=== PATIENT | female | born 1960 | race Caucasian/White ===

== ENCOUNTER → 2018-11-12 | Outpatient (CLI) | payer MEDICAID ==
[2018-11-12 08:47] LABS: ABSOLUTE BASOPHILS # (AUTO) 0.1 10^3/uL (0.0-0.2); ABSOLUTE EOSINOPHILS # (AUTO) 0.4 10^3/uL (0.0-0.6); ABSOLUTE LYMPHOCYTES (AUTO) 2.9 10^3/uL (0.5-4.7); ABSOLUTE MONOCYTES (AUTO) 0.6 10^3/uL (0.1-1.4); ABSOLUTE NEUT (AUTO) 4.6 10^3/uL (1.7-8.2); BASOPHILS % (AUTO) 0.8 % (0-2); EOSINOPHILS % (AUTO) 4.2 % (0-6); HEMATOCRIT 37.3 % (36.0-47.0); HEMOGLOBIN 13.2 g/dL (12.0-15.5); LYMPHOCYTES % (AUTO) 34.1 % (13-45); MEAN CORPUSCULAR HEMOGLOBIN 32.7 pg (27.0-33.4); MEAN CORPUSCULAR HGB CONC 35.3 g/dL (32.0-36.0); MEAN CORPUSCULAR VOLUME 93 fl (80-97); MONOCYTES % (AUTO) 6.8 % (3-13); PLATELET COUNT 263 10^3/uL (150-450); RED BLOOD COUNT 4.02 10^6/uL (3.72-5.28); RED CELL DISTRIBUTION WIDTH 12.1 % (11.5-14.0); SEGMENTED NEUTROPHILS % (AUTO) 54.1 % (42-78); TOTAL CELLS COUNTED % (AUTO) 100 %; WHITE BLOOD COUNT 8.4 10^3/uL (4.0-10.5)
[2018-11-12 09:28] LABS: ERYTHROCYTE SEDIMENTATION RATE 43 mm/hr (0-30)
[2018-11-12 09:34] LABS: ALANINE AMINOTRANSFERASE 63 U/L (9-52); ALBUMIN 4.3 g/dL (3.5-5.0); ALKALINE PHOSPHATASE 80 U/L (38-126); ANION GAP 7 (5-19); ASPARTATE AMINO TRANSFERASE 40 U/L (14-36); BILIRUBIN,DIRECT 0.3 mg/dL (0.0-0.4); BILIRUBIN,TOTAL 0.4 mg/dL (0.2-1.3); BLOOD UREA NITROGEN 12 mg/dL (7-20); CALCIUM 9.5 mg/dL (8.4-10.2); CARBON DIOXIDE 26 mmol/L (22-30); CHLORIDE 107 mmol/L (98-107); CHOLESTEROL 232.97 mg/dL (0-200); GLUCOSE 101 mg/dL (75-110); POTASSIUM 3.9 mmol/L (3.6-5.0); SODIUM 140.1 mmol/L (137-145); TOTAL PROTEIN 7.4 g/dL (6.3-8.2); TRIGLYCERIDES 362 mg/dL (<150)
[2018-11-12 09:47] LABS: DIRECT LDL 153 mg/dL (<100)
--- NOTE | 2018-11-12 09:47 | WOMENS IMAGING REPORT ---
EXAM DESCRIPTION: 3D SCREENING MAMMO BILAT COMPLETED DATE/TIME: 11/12/2018 8:17 am REASON FOR STUDY: Z12.31 ROUTINE 3D BILATERAL SCREENING Z12.31 ENCNTR SCREEN MAMMOGRAM FOR MALIGNAN T NEOPLASM OF DAVIS COMPARISON: 2008 TECHNIQUE: Standard craniocaudal and mediolateral oblique views of each breast recorded using digita l acquisition and breast tomosynthesis. LIMITATIONS: None. FINDINGS: No masses, calcifications or architectural distortion. No areas of suspicion. Read with the assistance of CAD. .[facility] - R2 Cenova Version 1.3 .[facility] - R2 Cenova Version 2.1 .[facility] - R2 Cenova Version 2.4 .[facility] - R2 Cenova Version 2.4 .[facility] - R2 [employer] Version 9.2 IMPRESSION: NORMAL MAMMOGRAM. BIRADS 1. BREAST DENSITY: a. The breasts are almost entirely fatty. BIRAD: 1 NEGATIVE RECOMMENDATION: ROUTINE SCREENING COMMENT: The patient has been notified of the results by letter per MQSA requirements. Additional no tification policies are in place for contacting patient with suspicious or incomplete findings. Quality ID #225: The [employer] recommends an annual screening mammogram for women aged 40 years or over. This facility utilizes a reminder system to ensure that all patients receive reminder letters, and/or direct phone calls for appointments. This includes reminders for routine scr eening mammograms, diagnostic mammograms, or other Breast Imaging Interventions when appropriate. Th is patient will be placed in the appropriate reminder system. The [employer] (ACR) has developed recommendations for screening MRI of the breast s in certain patient populations, to be used in conjunction with mammography. Breast MRI surveillanc e may be appropriate for women with more than 20% lifetime risk of developing breast cancer as deter mined by genetic testing, significant family history of the disease, or history of mantle radiation f or Hodgkins Disease. ACR Practice Guidelines 2008. DBT Technology DBT is a type of tomographic mammography. With conventional mammography, overlapping breast tissue ma y make lesions difficult to detect, even with good compression. DBT uses an x-ray tube that rotates a round the breast, taking images at different angles. These images are then combined to create thin sl ices of the breast that the radiologist can view as a 3D reconstruction. The [facility] unit can perform full-field digital mammograms (2D imaging); or DBT (3D imaging); or both, in a combination mode that quickly performs both the mammogram and the tomosynthesis scan while the breast is still compressed. PQRS 6045F: Fluoroscopic imaging is not utilized for breast tomosynthesis. TECHNICAL DOCUMENTATION: FINDING NUMBER: (1) ASSESSMENT: (1) JOB ID: [id number] [employer]- All Rights Reserved Reading location - IP/workstation name: [email or web address] CENTERReshma
[2018-11-12 09:49] LABS: C-REACTIVE PROTEIN < 5.0 mg/L (<10.0); VLDL CHOLESTEROL 72.4 mg/dL (10-31)
[2018-11-14 07:22] LABS: CYCLIC CITRUL PEPTIDE IGG/A AB 8 units (0-19)
== END ==
LOC: WI 07:45
PROVIDERS: ATTEND Internal Medicine
DX: Z12.31 Encounter for screening mammogram for malignant neoplasm of breast (principal); D64.9 Anemia, unspecified; R10.9 Unspecified abdominal pain; E78.5 Hyperlipidemia, unspecified; E03.9 Hypothyroidism, unspecified; M32.9 Systemic lupus erythematosus, unspecified; M12.9 Arthropathy, unspecified; E55.9 Vitamin D deficiency, unspecified
CPT/HCPCS: 36415; 77063; 77067; 80053; 80061; 82306; 84443; 85025; 85652; 86038; 86140; 86200; 86430

== ENCOUNTER → 2018-11-12 | Outpatient (CLI) | payer MEDICAID ==
--- NOTE | 2018-11-12 11:26 | RADIOLOGY REPORT (SQ) ---
EXAM DESCRIPTION: KNEE RIGHT 4 VIEWS COMPLETED DATE/TIME: 11/12/2018 10:55 am REASON FOR STUDY: ARTHROPATHIC PSORIASIS, UNSPECIFIED L40.50 ARTHROPATHIC PSORIASIS, UNSPECIFIED COMPARISON: None. NUMBER OF VIEWS: Four views. TECHNIQUE: AP, lateral, and both oblique radiographic images acquired of the right knee. LIMITATIONS: None. FINDINGS: MINERALIZATION: Normal. BONES: No acute fracture or dislocation. Small enthesiophyte at the quadriceps tendon insertion. JOINT: Mild narrowing of the medial, lateral and patellofemoral compartments. Small marginal osteop hyte medial compartment. SOFT TISSUES: No soft tissue swelling. No radio-opaque foreign body. OTHER: No other significant finding. IMPRESSION: 1. Mild tricompartmental joint disease. . 2. No acute osseous findings. TECHNICAL DOCUMENTATION: JOB ID: [id number] [employer]- All Rights Reserved Reading location - IP/workstation name: [email or web address] MANUEL
--- NOTE | 2018-11-12 11:28 | RADIOLOGY REPORT (SQ) ---
EXAM DESCRIPTION: ANKLE BILATERAL 3 VIEWS MIN COMPLETED DATE/TIME: 11/12/2018 10:55 am REASON FOR STUDY: ARTHROPATHIC PSORIASIS, UNSPECIFIED L40.50 ARTHROPATHIC PSORIASIS, UNSPECIFIED COMPARISON: None. NUMBER OF VIEWS: Three views. TECHNIQUE: AP, lateral, and oblique radiographic images acquired of the right and left ankle. LIMITATIONS: None. FINDINGS: MINERALIZATION: Normal. BONES: No acute fracture or dislocation. Prominent calcaneal spurs bilaterally, slightly more pronou nced on the right. JOINTS: No significant joint space narrowing. No erosions. No chondrocalcinosis. SOFT TISSUES: No soft tissue swelling. No foreign body. OTHER: No other significant finding. IMPRESSION: 1. No acute osseous findings. 2. Prominent calcaneal spurs bilaterally. TECHNICAL DOCUMENTATION: JOB ID: [id number] [employer]- All Rights Reserved Reading location - IP/workstation name: [email or web address] MANUEL
--- NOTE | 2018-11-12 11:32 | RADIOLOGY REPORT (SQ) ---
EXAM DESCRIPTION: ELBOW BILATERAL 2 VIEWS MIN COMPLETED DATE/TIME: 11/12/2018 10:55 am REASON FOR STUDY: ARTHROPATHIC PSORIASIS, UNSPECIFIED L40.50 ARTHROPATHIC PSORIASIS, UNSPECIFIED COMPARISON: None. NUMBER OF VIEWS: Four views. TECHNIQUE: AP, lateral, and both oblique radiographic images acquired of the right and left elbow. LIMITATIONS: None. FINDINGS: MINERALIZATION: Normal. BONES: No acute fracture or dislocation. No worrisome bone lesions. JOINT: No evidence for significant joint space narrowing. No erosions. No chondrocalcinosis. No ef fusion. SOFT TISSUES: No soft tissue swelling. No foreign body. OTHER: No other significant finding. IMPRESSION: 1. NEGATIVE STUDY OF THE RIGHT AND LEFT ELBOW. TECHNICAL DOCUMENTATION: JOB ID: [id number] [employer]- All Rights Reserved Reading location - IP/workstation name: [email or web address] MANUEL
--- NOTE | 2018-11-12 11:35 | RADIOLOGY REPORT (SQ) ---
EXAM DESCRIPTION: T SPINE AP/LAT COMPLETED DATE/TIME: 11/12/2018 10:55 am REASON FOR STUDY: ARTHROPATHIC PSORIASIS, UNSPECIFIED L40.50 ARTHROPATHIC PSORIASIS, UNSPECIFIED COMPARISON: 07/26/2009 NUMBER OF VIEWS: Two views. TECHNIQUE: AP and lateral radiographic images acquired of the thoracic spine. LIMITATIONS: None. FINDINGS: MINERALIZATION: Normal. ALIGNMENT: Very mild levoconvex scoliosis of the thoracic spine, stable finding. VERTEBRAE: No fracture or bone lesion. Maintained height, normal segmentation. DISCS: Mild disc space narrowing lower thoracic spine. No significant loss of height. No large oste ophytes. HARDWARE: None in the spine. MEDIASTINUM AND SOFT TISSUES: Normal heart size and aortic contour. No soft tissue abnormality. VISUALIZED LUNG ALBARRAN: Clear. OTHER: No other significant finding. IMPRESSION: 1. Stable very mild levoconvex scoliosis of the thoracic spine. Degenerative mild barajas ges lower thoracic spine. 2. No acute osseous findings. TECHNICAL DOCUMENTATION: JOB ID: [id number] [employer]- All Rights Reserved Reading location - IP/workstation name: [email or web address] MANUEL
--- NOTE | 2018-11-12 12:53 | RADIOLOGY REPORT (SQ) ---
EXAM DESCRIPTION: CERV SP 4 OR 5 VIEWS COMPLETED DATE/TIME: 11/12/2018 12:16 pm REASON FOR STUDY: ARTHROPATHIC PSORIASIS, UNSPECIFIED L40.50 ARTHROPATHIC PSORIASIS, UNSPECIFIED COMPARISON: Cervical spine plain films 07/26/2009 NUMBER OF VIEWS: Five views. TECHNIQUE: AP, lateral, obliques and odontoid radiographic images acquired of the cervical spine. LIMITATIONS: None. FINDINGS: MINERALIZATION: Normal. ALIGNMENT: Anatomic. VERTEBRAE: Vertebral bodies of normal height. DISCS: Mild disc space loss of height at C5-6 FORAMINA: High-grade left C2-3 and C3-4 foraminal narrowing. Moderate left C4-5 and C6-7 foraminal n arrowing. LATERAL AND POSTERIOR ELEMENTS: Facets, lateral masses and spinous processes without significant find ings. HARDWARE: None in the spine. SOFT TISSUES: No masses or calcifications. Lung apices clear. OTHER: No other significant finding. IMPRESSION: Multilevel left-sided foraminal narrowing TECHNICAL DOCUMENTATION: JOB ID: [id number] [employer]- All Rights Reserved Reading location - IP/workstation name: [email or web address]
--- NOTE | 2018-11-12 13:17 | RADIOLOGY REPORT (SQ) ---
EXAM DESCRIPTION: L SPINE WHOLE COMPLETED DATE/TIME: 11/12/2018 10:54 am REASON FOR STUDY: ARTHROPATHIC PSORIASIS, UNSPECIFIED L40.50 ARTHROPATHIC PSORIASIS, UNSPECIFIED COMPARISON: None. NUMBER OF VIEWS: Five views including obliques. TECHNIQUE: AP, lateral, oblique, and sacral radiographic images acquired of the lumbar spine. LIMITATIONS: None. FINDINGS: MINERALIZATION: Normal. SEGMENTATION: Normal. No transitional anatomy. ALIGNMENT: Exaggeration of the normal lordotic curvature. VERTEBRAE: Maintained height. No fracture or worrisome bone lesion. DISCS: Preserved height. Small anterior osteophytes off of the lumbar vertebra. Mild degenerative c hanges at the thoracolumbar junction and lower lumbar spine. POSTERIOR ELEMENTS: Mild facet arthrosis lower lumbar spine. Pedicles are intact. No pars defect or posterior arch defects. HARDWARE: None in the spine. PARASPINAL SOFT TISSUES: Normal. PELVIS: Intact as visualized. No fractures or worrisome bone lesions. SI joints intact. OTHER: Mild atherosclerotic changes involving the abdominal aorta. Prior cholecystectomy. IMPRESSION: 1. Degenerative mild changes involving the lumbar spine as above. 2. No acute osseous findings. TECHNICAL DOCUMENTATION: JOB ID: [id number] [employer]- All Rights Reserved Reading location - IP/workstation name: [email or web address] MANUEL
--- NOTE | 2018-11-12 13:21 | RADIOLOGY REPORT (SQ) ---
EXAM DESCRIPTION: HIP BILATERAL COMPLETED DATE/TIME: 11/12/2018 10:54 am REASON FOR STUDY: ARTHROPATHIC PSORIASIS, UNSPECIFIED L40.50 ARTHROPATHIC PSORIASIS, UNSPECIFIED COMPARISON: None. NUMBER OF VIEWS: Two views TECHNIQUE: AP pelvis and additional frog-leg view of both hips. LIMITATIONS: None. FINDINGS: MINERALIZATION: Normal. HIPS: No acute fracture or dislocation. No worrisome bone lesions. PELVIS AND SACRUM: No acute fracture or dislocation. No worrisome bone lesions. PUBIS AND ISCHIUM: No acute fracture. LOWER LUMBAR SPINE: No significant findings as visualized. SOFT TISSUES: No findings. OTHER: No other significant finding. IMPRESSION: 1. NEGATIVE STUDY OF THE PELVIS AND HIPS. TECHNICAL DOCUMENTATION: JOB ID: [id number] [employer]- All Rights Reserved Reading location - IP/workstation name: [email or web address] MANUEL
--- NOTE | 2018-11-12 13:21 | RADIOLOGY REPORT (SQ) ---
EXAM DESCRIPTION: KNEE LEFT 4 VIEW COMPLETED DATE/TIME: 11/12/2018 10:55 am REASON FOR STUDY: ARTHROPATHIC PSORIASIS, UNSPECIFIED L40.50 ARTHROPATHIC PSORIASIS, UNSPECIFIED COMPARISON: None. NUMBER OF VIEWS: Four views. TECHNIQUE: AP, lateral, and both oblique radiographic images acquired of the left knee. LIMITATIONS: None. FINDINGS: MINERALIZATION: Normal. BONES: No acute fracture or dislocation. No worrisome bone lesions. JOINT: No suprapatellar knee joint effusion. Mild medial compartment joint space narrowing without b ankit spurring SOFT TISSUES: No soft tissue swelling. No radio-opaque foreign body. OTHER: No other significant finding. IMPRESSION: Mild medial compartment left knee joint space narrowing without bulky bony spurring TECHNICAL DOCUMENTATION: JOB ID: [id number] [employer]- All Rights Reserved Reading location - IP/workstation name: [email or web address]
--- NOTE | 2018-11-12 13:27 | RADIOLOGY REPORT (SQ) ---
EXAM DESCRIPTION: SHOULDER BILAT 2 OR MORE VIEWS COMPLETED DATE/TIME: 11/12/2018 10:55 am REASON FOR STUDY: ARTHROPATHIC PSORIASIS, UNSPECIFIED L40.50 ARTHROPATHIC PSORIASIS, UNSPECIFIED COMPARISON: None. NUMBER OF VIEWS: Three views. TECHNIQUE: Internal rotation, external rotation, and Y view images acquired of the right and left sh oulder. LIMITATIONS: None. FINDINGS: MINERALIZATION: Normal. BONES: No acute fracture or dislocation. No worrisome bone lesions. JOINTS: Mild to moderate degenerative changes at the acromioclavicular joints bilaterally. Mild sub chondral cystic changes and small osteophytes off of the greater tuberosities of the humeral heads bi laterally. VISUALIZED LUNGS AND RIBS: No pneumothorax. No rib fracture. SOFT TISSUES: No radiopaque foreign body. OTHER: No other significant finding. IMPRESSION: 1. Mild to moderate degenerative changes at the acromioclavicular joints and the baylee l heads bilaterally. 2. No acute osseous findings. TECHNICAL DOCUMENTATION: JOB ID: [id number] [employer]- All Rights Reserved Reading location - IP/workstation name: [email or web address] MANUEL
== END ==
LOC: RAD 08:40
PROVIDERS: ATTEND Internal Medicine
DX: L40.50 Arthropathic psoriasis, unspecified (principal); M48.02 Spinal stenosis, cervical region
CPT/HCPCS: 72050; 72070; 72110; 73522

== ENCOUNTER 2020-08-17 16:16 | Emergency (ER) | payer SELFPAY ==
[2020-08-17] MEDS ORDERED: ACETAMINOPHEN 325 MG TABLET PO ONE (18:21)
[2020-08-17] MEDS ORDERED: PIPERACILLIN/TAZOBACTAM 4.5 GM VIAL IV ONE (18:53)
[2020-08-17] MEDS ORDERED: NORMAL SALINE IV ONE (18:53)
--- NOTE | 2020-08-17 18:57 | ER Document Report ---
ED Medical Screen (RME) - General Chief Complaint: Fever Stated Complaint: ABDOMINAL PAIN, NAUSEA, FEVER, DIARRHEA Time Seen by Provider: 08/17/20 18:48 Mode of Arrival: Ambulatory Information source: Patient TRAVEL OUTSIDE OF THE [place] IN LAST 30 DAYS: No - HPI Patient complains to provider of: Abdominal pain, fever Notes: 08/17/20 18:55 Patient here with complaints of lower abdominal pain with nausea and diarrhea for the last several days. She is also reported having a fever. Patient has a history of diverticulitis as well as diverticulitis with abscess. No dysuria or hematuria. Exam: Nontoxic, no distress. Lungs cranial throughout. Tachycardia. Lower abdominal tenderness on limited triage abdominal exam worse on the left lower quadrant. An initial examination was made on the patient as part of the triage process, and it was determined a more comprehensive evaluation was necessary. Initial orders were placed and patient was transferred to another provider in the ED who assumed care and finished evaluation and plan. Based on patient's vitals of fever with potential infection and tachycardia, I have initiated the sepsis protocol. Antibiotics for abdominal infection coverage have been initiated. - Related Data Allergies/Adverse Reactions: No Known Allergies Allergy (Verified 08/17/20 18:47) Home Medications: CLARITIN. FLONASE. FERRITIN. IBUPROFEN. TYLENOL Past Medical History - Social History Chew tobacco use (# tins/day): No Frequency of alcohol use: Occasional Drug Abuse: None Pulmonary Medical History: Denies: Hx Tuberculosis Renal/ Medical History: Denies: Hx End Stage Renal Disease, Hx Kidney Stones, Hx Peritoneal Dialysis Malignancy Medical History: Denies: Hx Leukemia GI Medical History: Reports: Hx Diverticulitis. Denies: Hx Crohn's Disease, Hx Gastroesophageal Reflux Disease, Hx Hiatal Hernia, Hx Irritable Bowel, Hx Liver Failure, Hx Pancreatitis, Hx Ulcer Musculoskeltal Medical History: Reports Hx Arthritis, Denies Hx Fibromyalgia, Denies Hx Muscular Dystrophy Traumatic Medical History: Denies: Hx Fractures Infectious Medical History: Denies: Hx HIV, Hx MRSA Past Surgical History: Reports: Hx Cholecystectomy, Hx Tubal Ligation. Denies: Hx Appendectomy, Hx Bowel Surgery, Hx Section, Hx Colostomy, Hx Coronary Artery Bypass Graft, Hx Gastric Bypass Surgery, Hx Herniorrhaphy, Hx Hysterectomy, Hx Mastectomy, Hx Pacemaker, Hx Tonsillectomy - Immunizations Hx Diphtheria, Pertussis, Tetanus Vaccination: Yes Physical Exam - Vital signs Vitals: Temp Pulse Resp BP Pulse Ox 103.1 F H 110 H 17 122/76 98 08/17/20 16:46 08/17/20 16:46 08/17/20 16:46 08/17/20 16:46 08/17/20 16:46 Course - Vital Signs Vital signs: Temp Pulse Resp BP Pulse Ox 103.1 F H 110 H 17 122/76 98 08/17/20 18:47 08/17/20 16:46 08/17/20 16:46 08/17/20 16:46 08/17/20 16:46
--- NOTE | 2020-08-17 19:58 | RADIOLOGY REPORT (SQ) ---
EXAM DESCRIPTION: CHEST SINGLE VIEW IMAGES COMPLETED DATE/TIME: 08/17/2020 7:45 pm REASON FOR STUDY: fever COMPARISON: 2013 EXAM PARAMETERS: NUMBER OF VIEWS: One view. TECHNIQUE: Single frontal radiographic view of the chest acquired. RADIATION DOSE: NA LIMITATIONS: None. FINDINGS: LUNGS AND PLEURA: No opacities, masses or pneumothorax. No pleural effusion. MEDIASTINUM AND HILAR STRUCTURES: No masses. Contour normal. HEART AND VASCULAR STRUCTURES: Heart normal in size. Normal vasculature. BONES: No acute findings. HARDWARE: None in the chest. OTHER: No other significant finding. IMPRESSION: NO ACUTE RADIOGRAPHIC FINDING IN THE CHEST. TECHNICAL DOCUMENTATION: JOB ID: [id number] [employer] All Rights Reserved Reading location - IP/workstation name: [email or web address]
[2020-08-17 20:44] LABS: ABSOLUTE LYMPHOCYTES (AUTO) 1.8 10^3/uL (0.5-4.7); ABSOLUTE MONOCYTES (AUTO) 1.2 10^3/uL (0.1-1.4); ABSOLUTE NEUT (AUTO) 11.8 10^3/uL (1.7-8.2); BASOPHILS % (AUTO) 0.2 % (0-2); EOSINOPHILS % (AUTO) 0.1 % (0-6); HEMATOCRIT 34.1 % (36.0-47.0); HEMOGLOBIN 11.8 g/dL (12.0-15.5); MEAN CORPUSCULAR HEMOGLOBIN 31.2 pg (27.0-33.4); MEAN CORPUSCULAR HGB CONC 34.6 g/dL (32.0-36.0); MEAN CORPUSCULAR VOLUME 90 fl (80-97); PLATELET COUNT 275 10^3/uL (150-450); RED BLOOD COUNT 3.78 10^6/uL (3.72-5.28); RED CELL DISTRIBUTION WIDTH 11.9 % (11.5-14.0); SEGMENTED NEUTROPHILS % (AUTO) 79.7 % (42-78); TOTAL CELLS COUNTED % (AUTO) 100 %; WHITE BLOOD COUNT 14.9 10^3/uL (4.0-10.5)
[2020-08-17 20:57] LABS: INTERNATIONAL RATION (INR) 1.16
[2020-08-17 21:02] LABS: ALBUMIN 3.8 g/dL (3.5-5.0); ALKALINE PHOSPHATASE 94 U/L (38-126); ANION GAP 7 (5-19); ASPARTATE AMINO TRANSFERASE 19 U/L (14-36); BILIRUBIN,DIRECT 0.2 mg/dL (0.0-0.4); BILIRUBIN,TOTAL 0.6 mg/dL (0.2-1.3); BLOOD UREA NITROGEN 16 mg/dL (7-20); CALCIUM 8.6 mg/dL (8.4-10.2); CARBON DIOXIDE 26 mmol/L (22-30); CHLORIDE 99 mmol/L (98-107); GLUCOSE 114 mg/dL (75-110); POTASSIUM 3.4 mmol/L (3.6-5.0); TOTAL PROTEIN 6.9 g/dL (6.3-8.2)
[2020-08-17 22:19] LABS: APPEARANCE,URINE CLOUDY; BILIRUBIN,URINE NEGATIVE (NEGATIVE); COLOR,URINE YELLOW; GLUCOSE, URINE NEGATIVE (NEGATIVE); KETONES,URINE NEGATIVE (NEGATIVE); PROTEIN,URINE 30 mg/dL (NEGATIVE); URINE SPECIFIC GRAVITY 1.008; UROBILINOGEN,URINE NEGATIVE mg/dL (<2.0)
--- NOTE | 2020-08-17 23:35 | EKG REPORT ---
SEVERITY:- BORDERLINE ECG - SINUS RHYTHM ATRIAL PREMATURE COMPLEX PROBABLE LEFT ATRIAL ABNORMALITY : Confirmed by: Charlotte Polk 17-Aug-2020 23:34:54
--- NOTE | 2020-08-17 23:52 | RADIOLOGY REPORT (SQ) ---
EXAM DESCRIPTION: CT ABDOMEN PELVIS WITH IV CONTRAST COMPLETED DATE/TME: 08/17/2020 23:21 CLINICAL HISTORY: 59 years, Female, Fever, LLQ abdo pain, hx of diverticulitis COMPARISON: 11/07/2013 CT TECHNIQUE: 735 Images stored on PACS. All CT scanners at this facility use dose modulation, iterative reconstruction, and/or weight based dosing when appropriate to reduce radiation dose to as low as reasonably achievable (ALARA). [facility]: Dose Right [facility]: CareDose [facility]: Dose Right [facility]: Teradose 4D [facility]: [employer] Technologies LIMITATIONS: None. FINDINGS: The visualized lung bases are unremarkable. Osseous structures are grossly intact. Fatty infiltrative change to the liver. Status post cholecystectomy. The spleen, adrenal glands, pancreas are unremarkable. Subcentimeter cyst in the inferior pole of the right kidney. Bilateral extrarenal pelves are noted. There is superimposed mild right perinephric inflammatory changes and fat stranding, correlate with urinalysis. Findings are nonspecific. Moderate atheromatous change. Normal appendix. Liquefied stool in the colon. Sigmoid diverticulosis with equivocal/mild wall thickening and surrounding inflammation suggesting minor diverticulitis. No abscess, free air, or free fluid. IMPRESSION: Findings suggestive of mild sigmoid diverticulitis. Nonspecific right perinephric fat stranding. Correlate with urinalysis. Fatty infiltrative change to the liver. Liquefied stool in the colon suggesting diarrhea TECHNICAL DOCUMENTATION: Quality ID # [id number]: Final reports with documentation of one or more dose reduction techniques (e.g., Automated exposure control, adjustment of the mA and/or kV according to patient size, use of iterative reconstruction technique) copyright 2011 [employer]- All Rights Reserved
[2020-08-17 23:53] LABS: VENOUS BLOOD HCO3 24.9 mmol/L (20-32); VENOUS BLOOD PCO2 45.9 mmHg (35-63); VENOUS BLOOD PH 7.35 (7.30-7.42)
[2020-08-18] MEDS ORDERED: METRONIDAZOLE 500 MG TABLET PO ONE (00:59)
--- NOTE | 2020-08-18 00:59 | ER Document Report ---
ED General - General Chief Complaint: Fever Stated Complaint: ABDOMINAL PAIN, NAUSEA, FEVER, DIARRHEA Time Seen by Provider: 08/17/20 18:48 Mode of Arrival: Ambulatory Information source: Patient TRAVEL OUTSIDE OF THE [place] IN LAST 30 DAYS: No - HPI Notes: Patient is a 59-year-old female who has had a several day history of gradually worsening fever, malaise, nausea, and low back pain. She has had some dysuria with it. No diarrhea. Some nausea and vomiting. Symptoms are just been gradually worsening and she decided come in to be evaluated. She has had diverticulitis in the past and her left lower quadrant pain reminded her of that. She had noticed a little bit of right low back pain but had really thought much about it. She had a lot of exposure to family from out of town over the holiday. All 4 of her children and their spouses along with her grandchildren came for [place]. Since then she also was travel to [place] for her [id number] . She is otherwise in her usual state of health. - Related Data Allergies/Adverse Reactions: No Known Allergies Allergy (Verified 08/17/20 18:47) Home Medications: CLARITIN. FLONASE. FERRITIN. IBUPROFEN. TYLENOL Past Medical History - General Information source: Patient - Social History Smoking Status: Current Every Day Smoker Chew tobacco use (# tins/day): No Frequency of alcohol use: Occasional Drug Abuse: None Family History: Reviewed & Not Pertinent, Other Patient has homicidal ideation: No - Medical History Medical History: Other Notes: Past medical history as documented in electronic health record is reviewed. Pulmonary Medical History: Denies: Hx Tuberculosis Renal/ Medical History: Denies: Hx End Stage Renal Disease, Hx Kidney Stones, Hx Peritoneal Dialysis Malignancy Medical History: Denies: Hx Leukemia GI Medical History: Reports: Hx Diverticulitis. Denies: Hx Crohn's Disease, Hx Gastroesophageal Reflux Disease, Hx Hiatal Hernia, Hx Irritable Bowel, Hx Liver Failure, Hx Pancreatitis, Hx Ulcer Musculoskeletal Medical History: Reports Hx Arthritis, Denies Hx Fibromyalgia, Denies Hx Muscular Dystrophy Traumatic Medical History: Denies: Hx Fractures Infectious Medical History: Denies: Hx HIV, Hx MRSA Past Surgical History: Reports: Hx Cholecystectomy, Hx Tubal Ligation. Denies: Hx Appendectomy, Hx Bowel Surgery, Hx Section, Hx Colostomy, Hx Coronary Artery Bypass Graft, Hx Gastric Bypass Surgery, Hx Herniorrhaphy, Hx Hysterectomy, Hx Mastectomy, Hx Pacemaker, Hx Tonsillectomy - Immunizations Hx Diphtheria, Pertussis, Tetanus Vaccination: Yes Hx Pneumococcal Vaccination: 08/11/12 Review of Systems - Review of Systems Notes: All other systems are negative or noncontributory except as noted in the present illness. Physical Exam - Vital signs Vitals: Temp Pulse Resp BP Pulse Ox 103.1 F H 110 H 17 122/76 98 08/17/20 16:46 08/17/20 16:46 08/17/20 16:46 08/17/20 16:46 08/17/20 16:46 - Notes Notes: Note: Well-developed moderately ill-appearing female no acute distress. Vital signs and nursing documentation are reviewed. HEENT: Grossly normal inspection. Neck: Supple nontender no adenopathy. Lungs: Clear to auscultation all doyle. Heart: Regular rate and rhythm. 1/6 systolic ejection murmur heard best in the aortic region without radiation. Abdomen: Obese soft mild left upper and left lower quadrant tenderness. No guarding no rebound no masses no organomegaly. Extremities: Without clubbing cyanosis or edema. Skin: Warm moist good turgor no rashes. Neuro: Alert and oriented x3. No focal motor or sensory deficits. Course - Re-evaluation Re-evalutation: 08/18/20 01:09 The patient's work-up was essentially completed before she was seen by me. It was very appropriately done and showed both mild diverticulitis and right pyelonephritis. She had been given some Zosyn empirically. I think better coverage for the 2 problems would be Levaquin and Flagyl. I started her on Levaquin intravenously +500 mg of metronidazole orally. My plan is to discharge her home on both medications orally. She should follow-up with her primary care provider in 5 to 7 days to assess her response to treatment or sooner if she is not improving. - Vital Signs Vital signs: Temp Pulse Resp BP Pulse Ox 98.6 F 86 17 118/68 98 08/17/20 23:00 08/17/20 23:00 08/17/20 23:00 08/17/20 23:00 08/17/20 23:00 - Laboratory Results Result Diagrams: 08/17/20 20:15 08/17/20 20:15 Laboratory Results Interpreted: 08/17/20 08/17/20 08/17/20 20:15 20:15 21:30 WBC 14.9 H Hgb 11.8 L Hct 34.1 L Lymph % (Auto) 12.0 L Absolute Neuts (auto) 11.8 H Seg Neutrophils % 79.7 H Sodium 131.5 L Potassium 3.4 L Est GFR (MDRD) Non-Af 57 L Glucose 114 H Urine Protein 30 H Urine Blood LARGE H Leukocyte Esterase Rfl LARGE H Critical Laboratory Results Reviewed: No Critical Results - Radiology Results Critical Radiology Results Reviewed: No Critical Results Discharge - Discharge Clinical Impression: Pyelonephritis Diverticulitis large intestine Qualifiers: Diverticulitis bleeding: without bleeding Diverticulitis complication: without perforation or abscess Qualified Code(s): K57.32 - Diverticulitis of large intestine without perforation or abscess without bleeding Condition: Stable Disposition: HOME, SELF-CARE Additional Instructions: Prescriptions for Levaquin and metronidazole have been sent to your pharmacy. Please pick these up and take them according to label directions. Contact your primary care doctor to set up a follow-up appointment in 5 to 7 days for recheck. Follow-up sooner if not improving. Return to the emergency department if your symptoms worsen or if any other concerning symptoms develop. Prescriptions: Metronidazole [Flagyl 500 mg Tablet] 500 mg PO TID #30 tablet Levofloxacin [Levaquin 500 mg Tablet] 500 mg PO DAILY #10 tablet
[2020-08-18] MEDS ORDERED: LEVOFLOXACIN 750 MG/D5W RTU 750 MG/150 ML RTUPB IV ONE (01:10)
[2020-08-18 02:41] VITALS: BP 125/59
== END 2020-08-18 02:54 | disposition home or self-care (01) ==
LOC: ER 16:16
DX: N12 Tubulo-interstitial nephritis, not specified as acute or chronic (principal); K57.32 Diverticulitis of large intestine without perforation or abscess without bleeding; R50.9 Fever, unspecified; R11.0 Nausea; R19.7 Diarrhea, unspecified; R10.30 Lower abdominal pain, unspecified; Z90.49 Acquired absence of other specified parts of digestive tract; Z98.51 Tubal ligation status
CPT/HCPCS: 93005; 99285; 96361; 96365; 96366; 96367; 36415; 87040; 87086; 83605; 85025; 85610; 87088; 80053; 81001; 87186; 82803; 71045; 74177; 93010; J7030; J1956; J2543